=== PATIENT | male | born 1980 | race Caucasian/White ===

== ENCOUNTER 2018-12-31 14:36 | Emergency (ER) | payer BC ==
--- NOTE | 2018-12-31 16:06 | CR ---
[id number] RAD/RAD Ankle Left 3V Min EXAM: LEFT ANKLE 3 VIEWS INDICATION: Injury last night with anterior lateral pain. COMPARISON: May 23, 2011. DISCUSSION: Small displaced avulsion fracture off the dorsal navicular. Soft tissue swelling in the dorsum of the foot and along the lateral aspect of the ankle. No dislocation or other osseous abnormality is identified. IMPRESSION: 1. Small avulsion fracture off the dorsal navicular. Jorden Crystal MD 12/31/18 2936 Thank you for allowing us to participate in the care of your patient.
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
== END 2018-12-31 16:51 | disposition home or self-care (01) ==
LOC: VM.ED 14:36
DX: S92.252A Displaced fracture of navicular [scaphoid] of left foot, initial encounter for closed fracture (principal); F17.210 Nicotine dependence, cigarettes, uncomplicated; X58.XXXA Exposure to other specified factors, initial encounter
CPT/HCPCS: 73610-LT; 99283-25